=== PATIENT | male | born 1975 | race Caucasian/White ===

== ENCOUNTER 2017-02-15 13:57 | Observation (INO) | payer MEDICAID, SELFPAY ==
[2017-02-15 14:20] VITALS: BP 150/95; PULSE 87; RESP 18; TEMP 36.9; O2SAT 100; BMI 24.3
[2017-02-15 14:26] VITALS: BMI 24.4
[2017-02-15 14:57] VITALS: BP 150/95; PULSE 87; RESP 18; TEMP 36.9
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
[2017-02-15] MEDS: Buprenorphine HCl 2 MG TAB.SUBL SL ×2 (15:11→22:47)
[2017-02-15] MEDS: cloNIDine HCl 0.1 MG Tablet PO ×2 (15:12→22:56)
[2017-02-15] MEDS: Dicyclomine 10 MG Capsule 20 MG PO ×2 (15:12→22:48)
[2017-02-15] MEDS: Methocarbamol 750 MG Tablet PO ×2 (15:13→22:48)
[2017-02-15 15:32] LABS: Absolute Lymphocyte Count 1.33 X10^3/ul (0.83-4.51); Absolute Neutrophil Count 5.2 X10^3/uL (2.0-7.7); Basophil# 0.01 X10^3/uL; Basophil% 0.1 % (0-1); Eosinophil# 0.17 X10^3/uL; Eosinophils% 2.3 % (0-5); Hemoglobin 12.1 g/dl (13.0-16.5); Lymphocyte # 1.33 X10^3/ul (4.0); Lymphocyte % 18.1 % (19-41); Mean Corp Hgb Conc 31.8 g/gl (32-36); Mean Corpuscular Hgb 29.5 pg (27.0-32.0); Mean Corpuscular Volume 92.7 fL (80-94); Mean Platelet Vol. 9.7 fl (6.2-12.0); Monocyte# 0.63 X10^3/uL; Monocyte% 8.6 % (0-10); Neutrophil # 5.21 X10^3/uL (2.7-7.7); Neutrophil % 70.8 % (47-70); Platelet Count 213 K/mm3 (150-450); RBC Distribution Width CV 13.3 % (11.6-14.6); White Blood Count 7.4 K/mm3 (4.4-11.0)
[2017-02-15 15:38] LABS: International Normalized Ratio 1.2; Prothrombin Time (Protime)PT. 14.7 SECONDS (11.7-14.9)
[2017-02-15 15:39] LABS: POSITIVE COUNT NO; POSITIVE DIFFERENTIAL NO; POSITIVE MORPHOLOGY NO
[2017-02-15 15:44] LABS: AST(SGOT) 27 U/L (15-37); Alanine Aminotransfer ALT/SGPT 32 U/L (12-78); Albumin, Serum 3.6 g/dL (3.4-5.0); Alkaline Phosphatase 68 U/L (45-117); Amylase 45 U/L (25-115); Anion Gap 9 (5-15); BUN 14 mg/dL (7-18); BUN/Creat Ratio 10.1 RATIO (10-20); Calcium,Total 8.6 mg/dL (8.5-10.1); Chloride 102 mmol/L (98-107); Creatinine, Serum 1.39 mg/dL (0.70-1.30); EST Glomerular Filtration Rate 60 mL/min (>60); Est Glom Filt Rate - Afr Amer 72 mL/min (>60); Estimated Creatinine Clearance 72.21 ml/min; Globulin 3.7 g/dL (2.2-4.2); Glucose 94 mg/dL (70-110); Lipase 117 U/L (73-393); Potassium 3.9 mmol/L (3.5-5.1); Protein, Total 7.3 g/dL (6.4-8.2); Sodium Level 137 mmol/L (136-145)
[2017-02-15 15:47] LABS: Alcohol, Blood (Medical)-Serum < 3.0 mg/dL
[2017-02-15 18:00] VITALS: BP 145/86; PULSE 80; RESP 20; TEMP 37
[2017-02-15 18:20] VITALS: BP 145/86; PULSE 80; RESP 20; TEMP 37; O2SAT 99
[2017-02-15 22:50] VITALS: BP 147/88; PULSE 83; RESP 18; TEMP 37.6; O2SAT 97
[2017-02-15] MEDS: Acetaminophen 500 MG Tablet PO (22:56)
[2017-02-16] MEDS: Carbidopa/Levodopa 25/100 Tablet PO (02:37)
[2017-02-16 02:38] VITALS: BP 116/63; PULSE 75; RESP 16; TEMP 36.8
[2017-02-16] MEDS: Buprenorphine HCl 2 MG TAB.SUBL SL ×3 (06:36→22:04)
[2017-02-16] MEDS: Methocarbamol 750 MG Tablet PO ×3 (06:36→22:04)
[2017-02-16 06:42] VITALS: BP 126/74; PULSE 74; RESP 18; TEMP 36.9
[2017-02-16] MEDS: cloNIDine HCl 0.1 MG Tablet PO ×2 (09:40→18:17)
[2017-02-16 10:00] VITALS: BP 123/74; PULSE 88; RESP 18; TEMP 37
[2017-02-16 14:00] VITALS: BP 124/64; PULSE 79; RESP 18; TEMP 36.9
--- NOTE | 2017-02-16 14:23 | CHAPLAIN ---
Type of Pastoral Visit _x__ Initial Visit ___ Follow-up Visit ___ On-call Visit ___ General Patient Visit ___ Spiritual Assessment ___ Family Conference ___ Bereavement ___ Rapid Response ___ Code Blue ___ Other (describe below) Pastoral Care Referral From ___ Patient ___ Family ___ Nurse ___ Physician ___ Pot Press Operator ___ Helicopter Dispatcher _x__ Other (describe below) Sacrament/Intervention ___ Active listening ___ Anointing ___ Faith ___ Bereavement ___ Communion ___ Cierra exploration ___ ___ Life review ___ Prayer ___ Reconciliation ___ Sacrament of Sick _x__ Supportive presence ___ Wedding ___ Other (describe below) Pastoral Comments introduction of control board operator and offer for support to patient; pt says that he appreciates the offer but does not need anything at this time
--- NOTE | 2017-02-16 17:52 | PCM.PROGNOTE ---
Patient Problems: Active and Suspected Problems Acute opioid withdrawal (Acute) Subjective: Patient was seen and examined today, he complains of somnolence but otherwise has no complaints today. - Physical Exam General: Alert, Oriented x3, Cooperative HEENT: Atraumatic, PERRLA, EOMI, Normocephalic Oral: Moist Mucosa Neck: Supple, No JVD, Negative Carotid Bruits Lungs: Clear to auscultation, Normal air movement Cardiovascular: Regular rate, No murmurs Abdomen: Bowel Sounds Present, Soft, Non Tender, Non-Distended, No hernias noted Extremities: No edema, Capillary Refill Less than 3 Seconds Skin: No rashes, No breakdown Musculoskeletal: No Tenderness to Palpation of Joints or Extremities Neurological: Cranial nerves II-XII grossly intact, Neuro grossly intact, Sensory exam intact to light touch and pain, Coordination normal Psych/Mental Status: Normal Affect, Appropriate, Alert and oriented to time, place, person, mood and affect Vital Signs Temp Pulse Resp BP Pulse Ox 98.4 F 79 18 124/64 H 97 02/16/17 14:00 02/16/17 14:00 02/16/17 14:00 02/16/17 14:00 02/15/17 22:50 Oxygen Delivery Method Room Air Weight: 77.111 kg Body Mass Index (BMI) 24.3 Intake and Output for Last 24 Hours 02/14/17 02/15/17 02/16/17 23:59 23:59 23:59 Intake Total 400 / 400 1000 / 1000 Balance 400 / 400 1000 / 1000 Assessment/Plan Active and Suspected Problems Acute opioid withdrawal (Acute) #1 acute opioid withdrawal-continue present medications #2 heroin addiction #3 Depression-patient's Wellbutrin was restarted Code Visit Inpatient E&M: [id number] [facility] Hosp L2
[2017-02-16 18:00] VITALS: BP 134/69; PULSE 82; RESP 18; TEMP 37.3
[2017-02-16] MEDS: Acetaminophen 500 MG Tablet PO (18:17)
[2017-02-16 22:00] VITALS: BP 131/69; PULSE 73; RESP 16; TEMP 37
[2017-02-17 06:00] VITALS: BP 147/82; PULSE 82; RESP 16; TEMP 37
[2017-02-17] MEDS: Buprenorphine HCl 2 MG TAB.SUBL SL ×2 (06:22→18:24)
[2017-02-17] MEDS: Acetaminophen 500 MG Tablet PO (06:22)
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
[2017-02-17 10:00] VITALS: BP 120/70; PULSE 81; RESP 18; TEMP 36.9
[2017-02-17] MEDS: Methocarbamol 750 MG Tablet PO ×2 (10:31→22:04)
[2017-02-17] MEDS: Carbidopa/Levodopa 25/100 Tablet PO (10:31)
[2017-02-17] MEDS: BENZOCAINE/MENTHOL 1 LOZENGE MUCOUS MEM (10:31)
[2017-02-17 14:00] VITALS: BP 130/77; PULSE 81; RESP 18; TEMP 36.7
[2017-02-17] MEDS: Loperamide 2 MG Capsule PO (17:27)
[2017-02-17] MEDS: Dicyclomine 10 MG Capsule 20 MG PO (17:27)
[2017-02-17] MEDS: Ondansetron ODT 4 MG Tablet PO (17:28)
[2017-02-17 18:00] VITALS: BP 138/64; PULSE 84; RESP 18; TEMP 37.1
[2017-02-17 22:00] VITALS: BP 136/78; PULSE 87; RESP 18; TEMP 37
[2017-02-18 05:33] VITALS: BP 140/80; PULSE 80; RESP 16; TEMP 37.2
[2017-02-18] MEDS: Buprenorphine HCl 2 MG TAB.SUBL SL (05:34)
--- NOTE | 2017-02-18 05:35 | NURSING ---
Refusing PRNs at this time. C/o of abd discomfort, muscle aches and withdrawal score of 1.
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
[2017-02-18 09:19] VITALS: BP 133/98; PULSE 85; RESP 18; TEMP 37.1
[2017-02-18] MEDS: Ondansetron ODT 4 MG Tablet PO (09:32)
== END 2017-02-18 13:16 | disposition home or self-care (01) | DRG 435 ==
PROVIDERS: Admitting Provider Hospitalist; Visit Provider Internal Medicine
DX: F11.23 Opioid dependence with withdrawal (principal); F32.9 Major depressive disorder, single episode, unspecified; Z87.19 Personal history of other diseases of the digestive system
CPT/HCPCS: 80053; 80320; 82150; 83690; 85025; 85610; 99218; G0378; G0480

== ENCOUNTER 2017-05-23 11:38 | Inpatient (IN) | payer MEDICAID, SELFPAY ==
[2017-05-23 11:40] VITALS: BP 202/136; PULSE 87; RESP 20; TEMP 36.6; O2SAT 100; BMI 23.7
[2017-05-23 12:29] LABS: Absolute Lymphocyte Count 1.72 X10^3/ul (0.83-4.51); Absolute Neutrophil Count 6.4 X10^3/uL (2.0-7.7); Basophil# 0.01 X10^3/uL; Basophil% 0.1 % (0-1); Eosinophil# 0.07 X10^3/uL; Eosinophils% 0.8 % (0-5); Hematocrit 37.7 % (40-54); Hemoglobin 12.1 g/dl (13.0-16.5); Lymphocyte # 1.72 X10^3/ul (4.0); Lymphocyte % 19.8 % (19-41); Mean Corp Hgb Conc 32.1 g/gl (32-36); Mean Corpuscular Hgb 29.5 pg (27.0-32.0); Mean Platelet Vol. 9.6 fl (6.2-12.0); Monocyte# 0.48 X10^3/uL; Monocyte% 5.5 % (0-10); Neutrophil # 6.37 X10^3/uL (2.7-7.7); Neutrophil % 73.6 % (47-70); Platelet Count 345 K/mm3 (150-450); RBC Distribution Width CV 14.9 % (11.6-14.6); RBC Distribution Width SD 48.9 fl (35.1-43.9); White Blood Count 8.7 K/mm3 (4.4-11.0)
[2017-05-23 12:31] LABS: POSITIVE COUNT NO; POSITIVE DIFFERENTIAL NO; POSITIVE MORPHOLOGY NO
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
[2017-05-23 12:37] LABS: Anion Gap 4 (5-15); BUN 15 mg/dL (7-18); BUN/Creat Ratio 12.6 RATIO (10-20); Calcium,Total 8.3 mg/dL (8.5-10.1); Chloride 105 mmol/L (98-107); Creatinine, Serum 1.19 mg/dL (0.70-1.30); EST Glomerular Filtration Rate 72 mL/min (>60); Est Glom Filt Rate - Afr Amer 87 mL/min (>60); Estimated Creatinine Clearance 87.01 ml/min; Glucose 73 mg/dL (74-106); Potassium 4.7 mmol/L (3.5-5.1); Sodium Level 137 mmol/L (136-145)
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
[2017-05-23] MEDS: 0.9% Normal Saline 1,000 ML 150 ML IV ×2 (13:32→23:39)
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
[2017-05-23] MEDS: Ondansetron 4 MG/2 ML Vial IV (13:41)
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
[2017-05-23 13:44] VITALS: BP 167/111; PULSE 80; RESP 16; O2SAT 98
--- NOTE | 2017-05-23 13:44 | NURSING ---
216 CELLULITIS LUE, OPIATE ABUSE, IVDA WHITE
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
[2017-05-23 14:58] VITALS: BP 161/100; PULSE 81; RESP 18; TEMP 36.3; O2SAT 96
[2017-05-23 15:07] VITALS: BMI 22.5
[2017-05-23 15:08] VITALS: BMI 22.5
[2017-05-23 15:43] VITALS: O2SAT 99
[2017-05-23] MEDS: Ketorolac 30 MG/ML Syringe IV ×2 (15:43→21:46)
[2017-05-23 15:58] LABS: Magnesium 2.2 mg/dL (1.6-2.6); Phosphorus 3.2 mg/dL (2.5-4.9)
[2017-05-23] MEDS: Piperacil/Tazobactam 3.375 GM/50 ML ML IV ×2 (17:12→21:46)
[2017-05-23] MEDS: Gabapentin 100 MG Capsule 200 MG PO (17:26)
[2017-05-23 20:58] VITALS: BP 162/100; PULSE 77; RESP 18; TEMP 36.6; O2SAT 98
[2017-05-23] MEDS: Famotidine 20 MG Tablet PO (21:46)
[2017-05-23] MEDS: cloNIDine HCl 0.1 MG Tablet PO (21:46)
[2017-05-23] MEDS: Dicyclomine 10 MG Capsule 20 MG PO (21:46)
[2017-05-23] MEDS: buPROPion (XL) 150 MG TABLET.XL PO (21:54)
[2017-05-23] MEDS: tiZANidine HCl 2 MG Tablet 4 MG PO (21:54)
--- NOTE | 2017-05-23 23:40 | NURSING ---
This RN walked into pt's room and one of pt's IV pumps was beeping. After fixing that pump, this RN realized the Zosyn bag had fallen because the hole on the bag to hang the bag had broken again after already being well reinforced. The majority of the flush bag had gone into the Zosyn bag. Pharmacy was called and after seeing what time the bag was hung and checking the pt's kidney function, it was decided to just hang an entire new bag. New bag hung by air sampling and monitoring and currently infusing. Per pharmacy-do not scan a new bag, OK to just put a note in.
[2017-05-24 02:58] VITALS: BP 151/91; PULSE 59; RESP 18; TEMP 36.5; O2SAT 98
[2017-05-24] MEDS: cloNIDine HCl 0.1 MG Tablet PO ×4 (03:43→20:56)
[2017-05-24] MEDS: Dicyclomine 10 MG Capsule 20 MG PO ×3 (03:43→20:55)
[2017-05-24] MEDS: Ketorolac 30 MG/ML Syringe IV ×3 (05:35→20:54)
[2017-05-24] MEDS: tiZANidine HCl 2 MG Tablet 4 MG PO ×3 (05:35→20:55)
[2017-05-24] MEDS: 0.9% Normal Saline 1,000 ML 150 ML IV ×3 (05:35→19:15)
[2017-05-24] MEDS: 0.9% NaCl IVPB Med Flush (250 mL) 15 ML IV (05:37)
[2017-05-24 06:42] LABS: Absolute Lymphocyte Count 1.86 X10^3/ul (0.83-4.51); Absolute Neutrophil Count 3.6 X10^3/uL (2.0-7.7); Basophil# 0.02 X10^3/uL; Basophil% 0.3 % (0-1); Eosinophils% 3.3 % (0-5); Hematocrit 37.3 % (40-54); Hemoglobin 11.5 g/dl (13.0-16.5); Lymphocyte # 1.86 X10^3/ul (4.0); Lymphocyte % 30.8 % (19-41); Mean Corp Hgb Conc 30.8 g/gl (32-36); Monocyte# 0.37 X10^3/uL; Monocyte% 6.1 % (0-10); Neutrophil # 3.59 X10^3/uL (2.7-7.7); Neutrophil % 59.5 % (47-70); POSITIVE COUNT NO; POSITIVE DIFFERENTIAL NO; POSITIVE MORPHOLOGY NO; Platelet Count 265 K/mm3 (150-450); RBC Distribution Width CV 14.9 % (11.6-14.6); RBC Distribution Width SD 51.4 fl (35.1-43.9); Red Blood Count 3.97 M/mm3 (4.6-6.2)
[2017-05-24 07:42] VITALS: O2SAT 98
[2017-05-24] MEDS: Piperacil/Tazobactam 3.375 GM/50 ML ML IV ×3 (07:52→20:55)
[2017-05-24] MEDS: Gabapentin 100 MG Capsule 200 MG PO ×3 (07:58→17:34)
[2017-05-24] MEDS: buPROPion (XL) 150 MG TABLET.XL PO ×2 (07:59→20:55)
[2017-05-24] MEDS: Docusate Sodium 100 MG Capsule PO (07:59)
[2017-05-24] MEDS: Famotidine 20 MG Tablet PO ×2 (07:59→20:53)
[2017-05-24 08:06] VITALS: PULSE 55
[2017-05-24 08:58] VITALS: BP 137/74; PULSE 55; RESP 16; TEMP 36.7; O2SAT 99
--- NOTE | 2017-05-24 10:26 | PCM.RX.CS ---
Consult Pharmacy has been consulted to manage selected antiobiotic: Vancomycin Type of Consult: New start Suspected Infection: Skin/Soft tissue Prior Doses of Antibiotics Received/Current Regimen: Medications Discontinued Medications Vancomycin HCl 1,250 mg/ (Sodium Chloride) 275 mls @ 183.333 mls/hr IV X1 ONE Stop: 05/23/17 13:44 Last Admin: 05/23/17 15:32 Dose: 183.333 mls/hr Labs: Sodium 137 mmol/L (136-145) 05/23/17 12:10 Potassium 4.7 mmol/L (3.5-5.1) 05/23/17 12:10 Chloride 105 mmol/L (98-107) 05/23/17 12:10 Carbon Dioxide 28.0 mmol/L (21.0-32.0) 05/23/17 12:10 Anion Gap 4 (5-15) L 05/23/17 12:10 BUN 15 mg/dL (7-18) 05/23/17 12:10 Creatinine 1.19 mg/dL (0.70-1.30) 05/23/17 12:10 Est GFR (MDRD) Af Amer 87 mL/min (>60) 05/23/17 12:10 Est GFR (MDRD) Non-Af 72 mL/min (>60) 05/23/17 12:10 BUN/Creatinine Ratio 12.6 RATIO (10-20) 05/23/17 12:10 Glucose 73 mg/dL (74-106) L 05/23/17 12:10 Weight used for dosin kg Estimated Creatinine Clearance: 87 mL/min Goal Trough: 10-15 mcg/mL Pharmacy Plan for Drug Dosing: Recommend vancomycin 1000mg IV q12h. Check trough prior to 4th dose. Pharmacy Service will continue to monitor and adjust dosing as required. Follow-Up Labs: Trough Vancomycin - 05/25 @ 1700
--- NOTE | 2017-05-24 11:48 | CASEMGMT ---
Social Work Note Call from Nancy with [facility] stating that the pt is not admitted under [facility], but she is assisting him with aftercare at [facility] who will be in to evaluate him this afternoon at 1500. Requests that SW obtain a Release of Information from pt. Educate pt to release of information and purpose and pt expresses understanding. Faxed completed Release of Information to Nancy with [facility] at [phone]. Kaila Sarkar, ROOF DESIGNER, [employer]
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
[2017-05-24 14:58] VITALS: BP 155/70; PULSE 69; RESP 16; TEMP 37; O2SAT 99
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
--- NOTE | 2017-05-24 15:34 | CHAPLAIN ---
Type of Pastoral Visit _x__ Initial Visit ___ Follow-up Visit ___ On-call Visit ___ General Patient Visit ___ Spiritual Assessment ___ Family Conference ___ Bereavement ___ Rapid Response ___ Code Blue ___ Other (describe below) Pastoral Care Referral From _x__ Patient ___ Family ___ Nurse ___ Physician ___ Nutrition Worker ___ Oil Well Fishing Tool Operator ___ Other (describe below) Sacrament/Intervention _x__ Active listening ___ Anointing ___ Taoism ___ Bereavement ___ Communion ___ Cierra exploration ___ _x__ Life review _x__ Prayer ___ Reconciliation ___ Sacrament of Sick _x__ Supportive presence ___ Wedding ___ Other (describe below) Pastoral Comments
[2017-05-24] MEDS: oxyCODONE 5 MG Tablet 10 MG PO (15:47)
[2017-05-24 20:32] VITALS: BP 164/103; PULSE 69; RESP 18; TEMP 36.8; O2SAT 98
[2017-05-24] MEDS: Ondansetron 4 MG/2 ML Vial IV (20:56)
[2017-05-24] MEDS: 0.9% NaCl Peripheral Flush Adult/Peds IV (22:45)
[2017-05-24] MEDS: proMETHazine 25 MG/ML Syringe 12.5 MG IV (22:46)
[2017-05-25] VITALS (13 sets, daily range): BP systolic 131–169; BP diastolic 60–102; PULSE 62–92; RESP 14–20; TEMP 36.3–37.2; O2SAT 96–100; BMI 23.8
--- NOTE | 2017-05-25 | DEB_PTH ---
PATIENT: ANAHY KOEHLER LOC: MS2 U#:[id number] AGE/SX: 42/M ROOM: [facility] [place] RE05/23/[address]: Dr. Thi Forde MD : [id number] BED: 1 DIS: 05/29/2017 SPEC #: [id number] RECD: 05/25/17 13:59 STATUS: XIMENA REQ #: [id number] KADY: 05/25/17 00:[address]: Floyd Hayes DEPT: SURGICAL PATHOLOGY RECD BY: Mookie Neil ENTERED: 05/25/17 13:59 SP TYPE: CAITLIN OCAMPO DR: MD Priscila Polanco MD No Primary Care Phys Tissues: Soft tissues, NOS Procedures: Surgery Specimen Level III Comments: @ Ordering doctor for SUIII edited from to @ by RGOOD at 05/25/17 1449 @ Submitting doctor edited from to @ by RGOOD at 05/25/17 1449 HEADER OPERATION: Incision and drainage, abscess left hand, I & D foreign body dorsum hand PRE-OP DIAGNOSIS: Cellulitis of left upper arm TISSUE SUBMITTED: Debrided tissue, left dorsum of hand MICROSCOPIC DIAGNOSIS Debrided tissue, left dorsum of hand: A piece of skin with underlying tissue with acute and chronic inflammation and abscess formation. Special stains for acid fast bacilli and fungi are negative for organisms; matched controls are appropriate. REYNA:hilton 05/26/17 MICROSCOPIC DESCRIPTION Slides are reviewed. GROSS DESCRIPTION Received in fixative is one container labeled with the patient's name and designated left dorsum of hand. The specimen consists of an irregular fragment of pink-joshi excised skin with attached yellow fatty tissue. The specimen measures 2.5 x 2.5 and a depth of fixation measuring 0.8 cm. No mass lesions are seen. Hooking Machine Operator sections are submitted in one cassette. HAO/hilton 05/25/17 TC: 2 CPT: 73002, 48412 x2
--- NOTE | 2017-05-25 00:13 | NURSING ---
Pt restless and not feeling well from withdraw symptoms. Pt was in bathroom and this RN assisted him back to bed and fixed blankets on bed. This RN found pill in bed and pt states it was a Wellbutrin. Compared pill to Wellbutrin pills in med stereo equipment installer room and did appear to be Wellbutrin. Pt states he took his dose from [facility] but he believes it may have been this morning's dose because he did not remember taking it this morning and had even asked earlier in [facility]'s shift if he had even received it this morning. Pt requested pill to be disposed of. This RN disposed of pill in sharps container.
[2017-05-25] MEDS: 0.9% Normal Saline 1,000 ML 150 ML IV ×3 (01:36→20:39)
[2017-05-25] MEDS: cloNIDine HCl 0.1 MG Tablet PO ×2 (01:50→22:08)
--- NOTE | 2017-05-25 04:58 | EKG12_ITS ---
Test Reason : PRE OP Blood Pressure : / mmHG Vent. Rate : 062 BPM Atrial Rate : 062 BPM P-R Int : 176 ms QRS Dur : 094 ms QT Int : 426 ms P-R-T Axes : 060 029 046 degrees QTc Int : 432 ms Normal sinus rhythm Normal ECG No previous ECGs available Confirmed by EDY TOBIN, ANGEL ([id number]), editor index ELSIE TYLER ([id number]) on 06/06/2017 9:31:43 AM Referred By: KAYLEE Confirmed By:ANGEL SNOW MD
[2017-05-25] MEDS: Ketorolac 30 MG/ML Syringe IV ×3 (05:23→21:08)
[2017-05-25] MEDS: tiZANidine HCl 2 MG Tablet 4 MG PO ×3 (05:24→21:08)
[2017-05-25 05:45] LABS: Bacteria 0 SEEN /hpf (None Seen); Mucous, Urine 0 SEEN /hpf (<or=2+); Red Blood Cells-Urine 0 SEEN /hpf (0-5); Squamous Epithelial Cells - UA 0 SEEN /hpf (0-5); White Blood Cells 0 SEEN /hpf (0-5)
[2017-05-25 05:47] LABS: Color, Urine Yellow (Yellow); Glucose, Dipstick Normal (Normal); Ketone-Dipstick Negative (Negative); Leukocyte Esterase-Dipstick Negative /ul (Negative); Nitrite-Dipstick Negative (Negative); Occult Blood-Urine Negative /ul (Negative); Protein-Dipstick Negative (Negative); Specific Gravity, Urine 1.015 (1.002-1.030); Urine Bilirubin Dipstick Negative (Negative); Urine Clarity Clear (Clear); Urine Urobilinogen Normal (Normal)
[2017-05-25 06:08] LABS: HEPATITIS B SURFACE AG Negative (Negative); Hepatitis A AB, Total Positive (Negative); Hepatitis A IgM Antibody Negative (Negative); Hepatitis B Core AB IgM Negative (Negative); Hepatitis B Core Ab Total Negative (Negative)
[2017-05-25 06:14] LABS: Hematocrit 34.3 % (40-54); Mean Corp Hgb Conc 32.1 g/gl (32-36); Mean Corpuscular Hgb 29.6 pg (27.0-32.0); Mean Corpuscular Volume 92.5 fL (80-94); Mean Platelet Vol. 9.5 fl (6.2-12.0); Platelet Count 302 K/mm3 (150-450); RBC Distribution Width CV 14.7 % (11.6-14.6); RBC Distribution Width SD 48.2 fl (35.1-43.9); Red Blood Count 3.71 M/mm3 (4.6-6.2); White Blood Count 8.4 K/mm3 (4.4-11.0)
[2017-05-25 06:15] LABS: Scan Indicated on CBC? Y/N NO
[2017-05-25 06:38] LABS: Anion Gap 7 (5-15); BUN 11 mg/dL (7-18); BUN/Creat Ratio 11.1 RATIO (10-20); Calcium,Total 7.7 mg/dL (8.5-10.1); Chloride 109 mmol/L (98-107); Creatinine, Serum 0.99 mg/dL (0.70-1.30); EST Glomerular Filtration Rate 88 mL/min (>60); Est Glom Filt Rate - Afr Amer 107 mL/min (>60); Estimated Creatinine Clearance 104.58 ml/min; Glucose 101 mg/dL (74-106); Potassium 3.7 mmol/L (3.5-5.1); Prealbumin 22.5 mg/dL (20.0-40.0); Sodium Level 141 mmol/L (136-145)
[2017-05-25] MEDS: Piperacil/Tazobactam 3.375 GM/50 ML ML IV ×3 (06:45→18:25)
--- NOTE | 2017-05-25 10:24 | NURSING ---
Call placed to [facility], report given to [place]
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
[2017-05-25 13:50] LABS: Hep B Surface Antibodies Reactive (.)
[2017-05-25 13:54] LABS: Hepatitis C Ab >11.0 s/co ratio (0.0-0.9)
[2017-05-25] MEDS: oxyCODONE 5 MG Tablet 10 MG PO ×4 (14:22→22:36)
[2017-05-25] MEDS: Docusate Sodium 100 MG Capsule PO (14:24)
[2017-05-25] MEDS: Famotidine 20 MG Tablet PO ×2 (14:24→21:08)
[2017-05-25] MEDS: buPROPion (XL) 150 MG TABLET.XL PO ×2 (14:25→21:08)
[2017-05-25] MEDS: Gabapentin 100 MG Capsule 200 MG PO ×2 (14:26→16:55)
--- NOTE | 2017-05-25 15:47 | CHAPLAIN ---
Type of Pastoral Visit ___ Initial Visit _x__ Follow-up Visit ___ On-call Visit ___ General Patient Visit ___ Spiritual Assessment ___ Family Conference ___ Bereavement ___ Rapid Response ___ Code Blue ___ Other (describe below) Pastoral Care Referral From _x__ Patient ___ Family ___ Nurse ___ Physician ___ Injection Maintenance Technician ___ Water Engineer ___ Other (describe below) Sacrament/Intervention _x__ Active listening ___ Anointing ___ Presybeterian ___ Bereavement ___ Communion _x__ Cierra exploration ___ _x__ Life review _x__ Prayer ___ Reconciliation ___ Sacrament of Sick _x__ Supportive presence ___ Wedding ___ Other (describe below) Pastoral Comments post surgery; pt is rapidly eating saying I'm so hungry; pt is actively talking about life and many matters; pt calls himself the black sheep of the family; we talk about his importance and value
[2017-05-25 18:19] LABS: Vancomycin, Trough Level 7.9 ug/mL (5.0-15.0)
[2017-05-25] MEDS: Dicyclomine 10 MG Capsule 20 MG PO (18:28)
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
--- NOTE | 2017-05-25 18:49 | PCM.RX.CS ---
Consult Type of Consult: Follow-up Suspected Infection: Skin/Soft tissue Prior Doses of Antibiotics Received/Current Regimen: Medications Discontinued Medications Vancomycin HCl (Vancomycin) 1,000 mg in 200 mls @ 200 mls/hr IV Q12H NENO Last Admin: 05/25/17 17:00 Dose: 200 mls/hr Labs: Sodium 141 mmol/L (136-145) 05/25/17 05:50 Potassium 3.7 mmol/L (3.5-5.1) 05/25/17 05:50 Chloride 109 mmol/L (98-107) H 05/25/17 05:50 Carbon Dioxide 25.0 mmol/L (21.0-32.0) 05/25/17 05:50 Anion Gap 7 (5-15) 05/25/17 05:50 BUN 11 mg/dL (7-18) 05/25/17 05:50 Creatinine 0.99 mg/dL (0.70-1.30) 05/25/17 05:50 Est GFR (MDRD) Af Amer 107 mL/min (>60) 05/25/17 05:50 Est GFR (MDRD) Non-Af 88 mL/min (>60) 05/25/17 05:50 BUN/Creatinine Ratio 11.1 RATIO (10-20) 05/25/17 05:50 Glucose 101 mg/dL (74-106) 05/25/17 05:50 Vancomycin Trough 7.9 ug/mL (5.0-15.0) 05/25/17 16:47 Microbiology: Microbiology 05/25/17 12:54 Tissue - Arm Left Gram Stain - Final Weight used for dosin.5 kg Estimated Creatinine Clearance: 104 ML/MIN Goal Trough: 10-15 mcg/mL Pharmacy Plan for Drug Dosing: Trough of 05.25.17 7.9. Cr 0.99. Will increase dose of vancomycin to 1250mg IV Q12H with next estimated trough to be ~12. Pharmacy Service will continue to monitor and adjust dosing as required. Follow-Up Labs: Trough Vancomycin Labs to be done on [date and time ordered]: 05.27.17 @0557
[2017-05-25] MEDS: 0.9% NaCl IVPB Med Flush (250 mL) 15 ML IV (20:39)
[2017-05-25] MEDS: Acetaminophen 325 MG Tablet 650 MG PO (22:08)
[2017-05-26] MEDS: oxyCODONE 5 MG Tablet 10 MG PO ×2 (02:32→07:48)
[2017-05-26] MEDS: Piperacil/Tazobactam 3.375 GM/50 ML ML IV ×3 (02:32→19:25)
[2017-05-26] MEDS: Dicyclomine 10 MG Capsule 20 MG PO (02:35)
[2017-05-26] MEDS: cloNIDine HCl 0.1 MG Tablet PO ×2 (02:35→22:15)
[2017-05-26 02:37] VITALS: BP 157/82; PULSE 73; RESP 16; TEMP 36.7; O2SAT 99
[2017-05-26 02:40] VITALS: PULSE 73; RESP 16; O2SAT 99
[2017-05-26] MEDS: 0.9% Normal Saline 1,000 ML 150 ML IV ×2 (04:23→17:19)
[2017-05-26] MEDS: Acetaminophen 325 MG Tablet 650 MG PO ×2 (04:28→15:55)
[2017-05-26] MEDS: 0.9% NaCl Peripheral Flush Adult/Peds IV ×2 (05:10→22:01)
[2017-05-26] MEDS: Ketorolac 30 MG/ML Syringe IV ×3 (05:12→21:06)
[2017-05-26] MEDS: tiZANidine HCl 2 MG Tablet 4 MG PO ×3 (05:12→21:05)
[2017-05-26 07:42] VITALS: BP 156/95; PULSE 63; RESP 16; TEMP 36.1; O2SAT 100
[2017-05-26] MEDS: Gabapentin 100 MG Capsule 200 MG PO ×3 (07:48→16:00)
[2017-05-26 07:54] LABS: Hematocrit 37.9 % (40-54); Mean Corp Hgb Conc 31.7 g/gl (32-36); Mean Corpuscular Hgb 29.4 pg (27.0-32.0); Mean Corpuscular Volume 92.9 fL (80-94); Mean Platelet Vol. 9.2 fl (6.2-12.0); Platelet Count 254 K/mm3 (150-450); RBC Distribution Width CV 14.8 % (11.6-14.6); RBC Distribution Width SD 50.2 fl (35.1-43.9); Red Blood Count 4.08 M/mm3 (4.6-6.2); Scan Indicated on CBC? Y/N NO; White Blood Count 6.7 K/mm3 (4.4-11.0)
[2017-05-26 08:14] LABS: Anion Gap 7 (5-15); BUN 9 mg/dL (7-18); BUN/Creat Ratio 9.3 RATIO (10-20); Calcium,Total 7.7 mg/dL (8.5-10.1); Chloride 109 mmol/L (98-107); Creatinine, Serum 0.97 mg/dL (0.70-1.30); EST Glomerular Filtration Rate 91 mL/min (>60); Est Glom Filt Rate - Afr Amer 110 mL/min (>60); Estimated Creatinine Clearance 106.74 ml/min; Glucose 82 mg/dL (74-106); Potassium 3.6 mmol/L (3.5-5.1); Sodium Level 138 mmol/L (136-145)
[2017-05-26] MEDS: Famotidine 20 MG Tablet PO (09:07)
[2017-05-26] MEDS: buPROPion (XL) 150 MG TABLET.XL PO ×2 (09:07→21:05)
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
[2017-05-26] MEDS: Buprenorphine HCl 2 MG TAB.SUBL SL ×2 (10:39→17:19)
[2017-05-26] MEDS: QUEtiapine 25 MG Tablet PO ×2 (10:39→22:15)
--- NOTE | 2017-05-26 10:42 | NURSING ---
This nurse is aware that Dr. Moses has ordered a midline to be inserted into pt. IVT is not here and discussed with Ruddy Clark [employer] Assistant. Okay to call [facility], outside agency. This nurse called [facility] and informed them of the need/order for a midline in MR. Guerrero. They will call back with a time that they can access the pt.
--- NOTE | 2017-05-26 10:43 | NURSING ---
wound photo: left hand
--- NOTE | 2017-05-26 10:46 | CASEMGMT ---
Social Work Spoke with Nancy in [facility]. Pt has been denied post accute placement at [facility]. Pt is agreeable to placement at [facility]. Met with pt in room and discussed post accute placement and pt has spoken with Nancy and is agreeable to [facility]. Release form signed and clinical information faxed to EFREM Davis at [facility]. MATTHEW Ortiz
--- NOTE | 2017-05-26 11:02 | NURSING ---
pt lost IV access this am. Dr Yost aware. awaiting agency IVT to place midline if possible in pt
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
[2017-05-26 14:00] VITALS: BP 152/78; PULSE 77; RESP 18; TEMP 36.2; O2SAT 98
[2017-05-26 19:50] VITALS: PULSE 91; RESP 18; TEMP 36.4; O2SAT 100
--- NOTE | 2017-05-26 20:12 | PCM.PN.SRG ---
Patient Problems: Active and Suspected Problems Cellulitis of left upper arm (Acute) Subjective: Postop #1 Patient has wound pain. VAC applied. - Physical Exam General: Alert, Oriented x3 HEENT: PERRLA, EOMI Neck: Supple Lungs: Clear to auscultation Cardiovascular: Regular rate, Regular Rhythm Abdomen: Soft, Non-Distended Skin: Ulcer/ Wound - dorsum left hand and wrist wound is stable. No bleeding noted. VAC applied today. Lymphatic: - - no axillary adenopathy. Neurological: Cranial nerves II-XII grossly intact Psych/Mental Status: Normal Affect, Appropriate Vital Signs Temp Pulse Resp BP Pulse Ox 97.5 F L 91 18 152/78 H 100 05/26/17 19:50 05/26/17 19:50 05/26/17 19:50 05/26/17 14:00 05/26/17 19:50 Oxygen Delivery Method Room Air Weight: 170 lb 12.8 oz Body Mass Index (BMI) 23.8 Intake and Output for Last 24 Hours 05/24/17 05/25/17 05/26/17 23:59 23:59 23:59 Intake Total 2954.0 / 2954.0 6280 / 6280 5786 / 5786 Balance 2954.0 / 2954.0 6280 / 6280 5786 / 5786 Microbiology Past 72 Hours 05/25/17 12:54 Gram Stain - Final Tissue - Arm Left Wound Culture - Preliminary Staphylococcus aureus Laboratory Tests Past 24 Hrs 05/23/17 05/26/17 05/26/17 15:03 07:44 07:44 WBC 6.7 RBC 4.08 L Hgb 12.0 L Hct 37.9 L MCV 92.9 MCH 29.4 MCHC 31.7 L RDW 14.8 H RDW Differential 50.2 H Plt Count 254 MPV 9.2 Sodium 138 Potassium 3.6 Chloride 109 H Carbon Dioxide 22.0 Anion Gap 7 BUN 9 Creatinine 0.97 Estim Creat Clear Calc 106.74 Est GFR (MDRD) Af Amer 110 Est GFR (MDRD) Non-Af 91 BUN/Creatinine Ratio 9.3 L Glucose 82 Calcium 7.7 L Hepatitis C Comment Not Reportable Medical Necessity - Tobacco Use Smoking Status: Never smoker Tobacco Use: Non-smoker Assessment/Plan Active and Suspected Problems Cellulitis of left upper arm (Acute) 1. Abscess dorsum left hand and wrist area on ulnar aspect. 2. Retained foreign bodies granuloma left wrist distal forearm, stable. 3. Cocaine abuse. 4. Heroin abuse. 5. s/p I&D. Continue IV antibiotics with Zosyn and Vancomycin. Operative culture shows Staphylococcus aureus. Awaiting sensitivity. Wound is stable with no bleeding. VAC applied today. To be changed three times per week at 150 mmHg continuous suction. No foreign bodies seen in the area of the abscess. They appear to be more proximal and are asymptomatic at this time. Will re-evaluate in the future if the areas involved on the distal forearm become symptomatic. Anticipate increased metabolic demands from the infection and from the upcoming surgery. Prealbumin was 22.5. Encourage nutritional supplementation with protein to help the healing process. After discharge, will followup at the Wound Center. If there is a plateau in the healing process, can proceed with delayed closure with skin grafting. Encourage range of motion exercises to minimize stiffness.
[2017-05-26 22:07] VITALS: BP 154/102; PULSE 80; RESP 16; TEMP 36.6
[2017-05-27] MEDS: Piperacil/Tazobactam 3.375 GM/50 ML ML IV ×2 (01:07→09:35)
[2017-05-27] MEDS: Buprenorphine HCl 2 MG TAB.SUBL SL ×3 (01:07→17:07)
[2017-05-27 01:09] VITALS: BP 158/104; PULSE 79; RESP 16; TEMP 36.6; O2SAT 100
[2017-05-27] MEDS: tiZANidine HCl 2 MG Tablet 4 MG PO ×3 (05:51→22:41)
[2017-05-27] MEDS: Ketorolac 30 MG/ML Syringe IV ×3 (05:51→22:42)
--- NOTE | 2017-05-27 08:42 | PN_ITS ---
Patient Problems: Active and Suspected Problems Cellulitis of left upper arm (Acute) Subjective: Chief complaint: Follow-up after admission for left upper extremity/hand cellulitis and acute opioid withdrawal for medical stabilization. Patient seen and examined. No acute events overnight. He denies any left hand or arm pain. Denies fever chills. He complains of chronic abdominal pain secondary to IBS and chronic pancreatitis. His blood pressure slightly elevated , other vital signs are stable. - Physical Exam General: Alert, Oriented x3, Cooperative, No apparent distress HEENT: Atraumatic, PERRLA, EOMI Oral: Moist Mucosa, No Gingival or Mucosal Lesions/ Ulcerations Neck: Supple, No JVD, Negative Carotid Bruits, Trachea Midline, Thyroid Normal Size and Texture Lungs: Clear to auscultation, No rhonchi, No wheeze, No rales, Diminished Cardiovascular: Regular rate, Regular Rhythm, Normal S1, Normal S2, No murmurs, PMI Normal Abdomen: Bowel Sounds Present, Soft, Non Tender, Non-Distended, No Hepato- splenomegaly, - - Voluntary guarding. Extremities: No clubbing, No cyanosis, No edema Skin: No rashes, Ulcer/ Wound Lymphatic: No Cervical, Supraclavicular, or Inguinal Adenopathy Neurological: Cranial nerves II-XII grossly intact, Motor Exam 5/5 strength throughout Psych/Mental Status: Normal Affect, Appropriate, Alert and oriented to time, place, person, mood and affect Vital Signs Temp Pulse Resp BP Pulse Ox 97.8 F 79 16 158/104 H 100 05/27/17 01:09 05/27/17 01:09 05/27/17 01:09 05/27/17 01:09 05/27/17 01:09 Oxygen Delivery Method Room Air Weight: 170 lb 12.8 oz Body Mass Index (BMI) 23.8 Intake and Output for Last 24 Hours 05/25/17 05/26/17 05/27/17 23:59 23:59 23:59 Intake Total 6280 / 6280 5786 / 5786 1268 / 1268 Balance 6280 / 6280 5786 / 5786 1268 / 1268 Microbiology Past 72 Hours 05/25/17 12:54 Gram Stain - Final Tissue - Arm Left Wound Culture - Final Staphylococcus aureus Laboratory Tests Past 24 Hrs 05/23/17 15:03 Hepatitis C Comment Not Reportable Medical Necessity - Tobacco Use Smoking Status: Never smoker Tobacco Use: Non-smoker Assessment/Plan Active and Suspected Problems Cellulitis of left upper arm (Acute) This is a 42 years old male patient admitted because of left upper extremity/ hand redness, pain and edema in context of history of IV drug abuse, found to have acute left upper extremity cellulitis with questionable foreign body and was started on [facility] protocol for medical stabilization for opioid withdrawal yesterday. #1 acute left upper extremity/hand cellulitis/abscess of the dorsum of the left hand and wrist area with retained foreign bodies granuloma: Status post incision , drainage and excisional debridement of the abscess, status post wound VAC insertion. Postoperative day 2. He is on IV vancomycin and Zosyn. Vital signs are stable, afebrile. Wound culture revealed MSSA. Blood cultures with no growth in 48 hours. Plastic surgery of the case, Dr. Hayes is following. Plan to DC IV Zosyn, continue IV vancomycin. #2 acute opioid withdrawal: He is on [facility] protocol with tapering course of Subutex, as needed Catapres, Bentyl, Zofran, Seroquel and Zanaflex. Patient reported some improvement of his symptoms. Vital signs are stable, blood pressure slightly elevated. #3 polysubstance abuse: Hepatitis C antibodies were elevated, positive for hepatitis C. Hepatitis a antibody is also positive. At this time, he is not a candidate for treatment for hepatitis C. Recommend follow-up with PCP and referral to infectious disease as outpatient. #4 anxiety/depression: Continue Wellbutrin and atomoxetine. #5 chronic abdominal pain/chronic pancreatitis: This is chronic likely secondary to chronic pancreatitis. He is on PPI and pancrelipase. #6 DVT prophylaxis: Low risk patient, no prophylaxis indicated. This note was generated with [employer] software. It may contain incorrect words, spelling, and punctuation that were not noted in checking the note before signing. Code Visit Inpatient E&M: 11174 Subs Hosp L2
[2017-05-27 09:17] VITALS: BP 151/79; PULSE 75; RESP 16; TEMP 36.7; O2SAT 99
[2017-05-27] MEDS: Gabapentin 100 MG Capsule 200 MG PO ×3 (09:35→17:07)
[2017-05-27] MEDS: Pantoprazole Sodium 40 MG Tablet PO (09:35)
[2017-05-27] MEDS: buPROPion (XL) 150 MG TABLET.XL PO ×2 (09:36→17:08)
[2017-05-27 09:40] VITALS: BP 151/79; PULSE 75; RESP 16; TEMP 36.7
[2017-05-27] MEDS: Acetaminophen 325 MG Tablet 650 MG PO ×2 (12:14→19:50)
[2017-05-27 14:00] VITALS: BP 165/93; PULSE 79; RESP 16; TEMP 36.8
[2017-05-27 14:23] VITALS: BP 165/93; PULSE 79; RESP 16; TEMP 36.8; O2SAT 99
[2017-05-27] MEDS: 0.9% NaCl Peripheral Flush Adult/Peds IV ×2 (14:27→22:42)
--- NOTE | 2017-05-27 15:32 | PCM.PN.SRG ---
Patient Problems: Active and Suspected Problems Cellulitis of left upper arm (Acute) Subjective: Postop #2 Patient is resting comfortably. - Physical Exam General: Alert, Oriented x3 HEENT: PERRLA, EOMI Neck: Supple Lungs: Clear to auscultation Cardiovascular: Regular rate, Regular Rhythm Abdomen: Soft, Non-Distended Extremities: Edema - mild edema in left upper extremity, resolving., Peripheral Pulses Normal, - - good range of motion of his fingers and his wrist. Skin: Ulcer/ Wound - dorsum left hand and wrist wound is stable. Lymphatic: - - no axillary adenopathy. Neurological: Cranial nerves II-XII grossly intact Psych/Mental Status: Normal Affect, Appropriate Vital Signs Temp Pulse Resp BP Pulse Ox 98.3 F 79 16 165/93 H 99 05/27/17 14:23 05/27/17 14:23 05/27/17 14:23 05/27/17 14:23 05/27/17 14:23 Oxygen Delivery Method Room Air Weight: 170 lb 12.8 oz Body Mass Index (BMI) 23.8 Intake and Output for Last 24 Hours 05/25/17 05/26/17 05/27/17 23:59 23:59 23:59 Intake Total 6280 / 6280 5786 / 5786 1268 / 1268 Balance 6280 / 6280 5786 / 5786 1268 / 1268 Microbiology Past 72 Hours 05/25/17 12:54 Gram Stain - Final Tissue - Arm Left Wound Culture - Final Staphylococcus aureus Anaerobic Culture - Preliminary Checking for anaerobes, further studies to follow. Medical Necessity - Tobacco Use Smoking Status: Never smoker Tobacco Use: Non-smoker Assessment/Plan Active and Suspected Problems Cellulitis of left upper arm (Acute) 1. Abscess dorsum left hand and wrist area on ulnar aspect. 2. Retained foreign bodies granuloma dorsal aspect left wrist and distal forearm. 3. Cocaine abuse. 4. Heroin abuse. 5. s/p I&D. Continue IV antibiotics with Vancomycin. Operative culture shows Staphylococcus aureus. Zosyn has been stopped. Should be able to be discharged on po antibiotics such as Doxycycline. Wound is stable with no bleeding. VAC in place. To be changed three times per week at 150 mmHg continuous suction. No foreign bodies seen in the area of the abscess. They appear to be more proximal and are asymptomatic at this time. Will re-evaluate in the future if the areas involved on the distal forearm become symptomatic. Anticipate increased metabolic demands from the infection and from the upcoming surgery. Prealbumin was 22.5. Encourage nutritional supplementation with protein to help the healing process. After discharge, will followup at the [facility]ound Center. If there is a plateau in the healing process, can proceed with delayed closure with skin grafting. Encourage range of motion exercises to minimize stiffness.
[2017-05-27] MEDS: cloNIDine HCl 0.1 MG Tablet PO (19:50)
[2017-05-27] MEDS: Dicyclomine 10 MG Capsule 20 MG PO (19:50)
[2017-05-27 19:54] VITALS: BP 158/84; PULSE 87; RESP 20; TEMP 37.3
[2017-05-27] MEDS: QUEtiapine 25 MG Tablet PO (23:00)
[2017-05-28 02:00] VITALS: BP 150/93; PULSE 81; RESP 18; TEMP 36.6; O2SAT 98
[2017-05-28] MEDS: Buprenorphine HCl 2 MG TAB.SUBL SL ×2 (02:27→13:39)
[2017-05-28] MEDS: cloNIDine HCl 0.1 MG Tablet PO ×2 (02:27→05:51)
[2017-05-28] MEDS: Acetaminophen 325 MG Tablet 650 MG PO ×2 (02:28→20:38)
[2017-05-28] MEDS: 0.9% NaCl Peripheral Flush Adult/Peds IV (05:50)
[2017-05-28] MEDS: tiZANidine HCl 2 MG Tablet 4 MG PO ×3 (05:51→21:59)
[2017-05-28] MEDS: Ketorolac 30 MG/ML Syringe IV ×2 (05:53→13:39)
--- NOTE | 2017-05-28 08:57 | PCM.PROGNOTE ---
Patient Problems: Active and Suspected Problems Abscess of dorsum of left hand (Acute) extending onto left wrist, ulnar aspect Abscess of bursa, left wrist (Acute) Cellulitis of left upper arm (Acute) Subjective: Chief complaint: Follow-up after admission for left upper extremity/hand cellulitis/abscess and acute opioid withdrawal for medical stabilization. Patient seen and examined. No acute events overnight. He denies any significant complaints, left hand pain is manageable. Vital signs are stable. - Physical Exam General: Alert, Oriented x3, Cooperative, No apparent distress HEENT: Atraumatic, PERRLA, EOMI Oral: Moist Mucosa, No Gingival or Mucosal Lesions/ Ulcerations Neck: Supple, No JVD, Negative Carotid Bruits, Trachea Midline, Thyroid Normal Size and Texture Lungs: Clear to auscultation, Normal air movement, No rhonchi, No wheeze, No rales Cardiovascular: Regular rate, Regular Rhythm, Normal S1, Normal S2 Abdomen: Bowel Sounds Present, Soft, Non Tender, Non-Distended, No Hepato-splenomegaly Extremities: No clubbing, No cyanosis, No edema Skin: No rashes, No breakdown Lymphatic: No Cervical, Supraclavicular, or Inguinal Adenopathy Neurological: Cranial nerves II-XII grossly intact, Neuro grossly intact Psych/Mental Status: Normal Affect, Appropriate Vital Signs Temp Pulse Resp BP Pulse Ox 98 F 81 18 150/93 H 98 05/28/17 02:00 05/28/17 02:00 05/28/17 02:00 05/28/17 02:00 05/28/17 02:00 Oxygen Delivery Method Room Air Weight: 170 lb 12.8 oz Body Mass Index (BMI) 23.8 Intake and Output for Last 24 Hours 05/26/17 05/27/17 05/28/17 23:59 23:59 23:59 Intake Total 5786 / 5786 1268 / 1268 2576 / 2576 Balance 5786 / 5786 1268 / 1268 2576 / 2576 Microbiology Past 72 Hours 05/25/17 12:54 Gram Stain - Final Tissue - Arm Left Wound Culture - Final Staphylococcus aureus Anaerobic Culture - Preliminary Checking for anaerobes, further studies to follow. Laboratory Tests Past 24 Hrs 05/27/17 16:36 Vancomycin Trough 9.0 Medical Necessity - Tobacco Use Smoking Status: Never smoker Tobacco Use: Non-smoker Assessment/Plan Active and Suspected Problems Abscess of dorsum of left hand (Acute) extending onto left wrist, ulnar aspect Abscess of bursa, left wrist (Acute) Cellulitis of left upper arm (Acute) This is a 42 years old male patient admitted because of left upper extremity/hand redness, pain and edema in context of history of IV drug abuse, found to have acute left upper extremity cellulitis with questionable foreign body and was started on [facility] protocol for medical stabilization for opioid withdrawal yesterday. #1 acute left upper extremity/hand cellulitis/abscess of the dorsum of the left hand and wrist area with retained foreign bodies granuloma: Status post incision, drainage and excisional debridement of the abscess, status post wound VAC insertion. Postoperative day 3. He is on IV vancomycin, Zosyn discontinued. Wound culture revealed MSSA. Blood cultures with no growth in 48 hours. Plastic surgery of the case, Dr. Hayes is following. #2 acute opioid withdrawal: He is on [facility] protocol with tapering course of Subutex, as needed Catapres, Bentyl, Zofran, Seroquel and Zanaflex. Patient reported some improvement of his symptoms. Vital signs are stable, blood pressure slightly elevated. Might need to start him on blood pressure medication. #3 polysubstance abuse: Hepatitis C antibodies were elevated, positive for hepatitis C. Hepatitis a antibody is also positive. At this time, he is not a candidate for treatment for hepatitis C. Recommend follow-up with PCP and referral to infectious disease as outpatient. #4 anxiety/depression: Continue Wellbutrin and atomoxetine. #5 chronic abdominal pain/chronic pancreatitis: This is chronic likely secondary to chronic pancreatitis. He is on PPI and pancrelipase. #6 DVT prophylaxis: Low risk patient, no prophylaxis indicated. This note was generated with [employer] software. It may contain incorrect words, spelling, and punctuation that were not noted in checking the note before signing. Code Visit Inpatient E&M: 86885 Subs Hosp L2
--- NOTE | 2017-05-28 09:00 | PN_ITS ---
Patient Problems: Active and Suspected Problems Abscess of dorsum of left hand (Acute) extending onto left wrist, ulnar aspect Abscess of bursa, left wrist (Acute) Cellulitis of left upper arm (Acute) Subjective: Chief complaint: Follow-up after admission for left upper extremity/hand cellulitis/abscess and acute opioid withdrawal for medical stabilization. Patient seen and examined. No acute events overnight. He denies any significant complaints, left hand pain is manageable. Vital signs are stable. - Physical Exam General: Alert, Oriented x3, Cooperative, No apparent distress HEENT: Atraumatic, PERRLA, EOMI Oral: Moist Mucosa, No Gingival or Mucosal Lesions/ Ulcerations Neck: Supple, No JVD, Negative Carotid Bruits, Trachea Midline, Thyroid Normal Size and Texture Lungs: Clear to auscultation, Normal air movement, No rhonchi, No wheeze, No rales Cardiovascular: Regular rate, Regular Rhythm, Normal S1, Normal S2 Abdomen: Bowel Sounds Present, Soft, Non Tender, Non-Distended, No Hepato- splenomegaly Extremities: No clubbing, No cyanosis, No edema Skin: No rashes, No breakdown Lymphatic: No Cervical, Supraclavicular, or Inguinal Adenopathy Neurological: Cranial nerves II-XII grossly intact, Neuro grossly intact Psych/Mental Status: Normal Affect, Appropriate Vital Signs Temp Pulse Resp BP Pulse Ox 98 F 81 18 150/93 H 98 05/28/17 02:00 05/28/17 02:00 05/28/17 02:00 05/28/17 02:00 05/28/17 02:00 Oxygen Delivery Method Room Air Weight: 170 lb 12.8 oz Body Mass Index (BMI) 23.8 Intake and Output for Last 24 Hours 05/26/17 05/27/17 05/28/17 23:59 23:59 23:59 Intake Total 5786 / 5786 1268 / 1268 2576 / 2576 Balance 5786 / 5786 1268 / 1268 2576 / 2576 Microbiology Past 72 Hours 05/25/17 12:54 Gram Stain - Final Tissue - Arm Left Wound Culture - Final Staphylococcus aureus Anaerobic Culture - Preliminary Checking for anaerobes, further studies to follow. Laboratory Tests Past 24 Hrs 05/27/17 16:36 Vancomycin Trough 9.0 Medical Necessity - Tobacco Use Smoking Status: Never smoker Tobacco Use: Non-smoker Assessment/Plan Active and Suspected Problems Abscess of dorsum of left hand (Acute) extending onto left wrist, ulnar aspect Abscess of bursa, left wrist (Acute) Cellulitis of left upper arm (Acute) This is a 42 years old male patient admitted because of left upper extremity/ hand redness, pain and edema in context of history of IV drug abuse, found to have acute left upper extremity cellulitis with questionable foreign body and was started on [facility] protocol for medical stabilization for opioid withdrawal yesterday. #1 acute left upper extremity/hand cellulitis/abscess of the dorsum of the left hand and wrist area with retained foreign bodies granuloma: Status post incision , drainage and excisional debridement of the abscess, status post wound VAC insertion. Postoperative day 3. He is on IV vancomycin, Zosyn discontinued. Wound culture revealed MSSA. Blood cultures with no growth in 48 hours. Plastic surgery of the case, Dr. Hayes is following. #2 acute opioid withdrawal: He is on [facility] protocol with tapering course of Subutex, as needed Catapres, Bentyl, Zofran, Seroquel and Zanaflex. Patient reported some improvement of his symptoms. Vital signs are stable, blood pressure slightly elevated. Might need to start him on blood pressure medication. #3 polysubstance abuse: Hepatitis C antibodies were elevated, positive for hepatitis C. Hepatitis a antibody is also positive. At this time, he is not a candidate for treatment for hepatitis C. Recommend follow-up with PCP and referral to infectious disease as outpatient. #4 anxiety/depression: Continue Wellbutrin and atomoxetine. #5 chronic abdominal pain/chronic pancreatitis: This is chronic likely secondary to chronic pancreatitis. He is on PPI and pancrelipase. #6 DVT prophylaxis: Low risk patient, no prophylaxis indicated. This note was generated with [employer] software. It may contain incorrect words, spelling, and punctuation that were not noted in checking the note before signing. Code Visit Inpatient E&M: 32222 Subs Hosp L2
[2017-05-28 09:15] VITALS: BP 120/62; PULSE 69; RESP 16; TEMP 37.2
[2017-05-28] MEDS: Pantoprazole Sodium 40 MG Tablet PO (09:30)
[2017-05-28] MEDS: Gabapentin 100 MG Capsule 200 MG PO ×3 (09:30→16:45)
[2017-05-28] MEDS: buPROPion (XL) 150 MG TABLET.XL PO ×2 (09:30→16:46)
[2017-05-28 13:33] VITALS: BP 140/95; PULSE 78; RESP 16; TEMP 37
--- NOTE | 2017-05-28 16:34 | NURSING ---
PT C/O EPIGASTRIC PAIN. PT STATES THAT PAIN OCCURS WHEN PAIN MEDS ARE DECREASED. WILL ATTEMPT TO RELIEVE PAIN WITH PRN MEDS.
[2017-05-28] MEDS: QUEtiapine 25 MG Tablet PO (16:46)
[2017-05-28] MEDS: Mag Hydrox/Al Hydrox/Simeth 30 ML UDC PO (16:46)
[2017-05-28] MEDS: Dicyclomine 10 MG Capsule 20 MG PO (16:46)
[2017-05-28 22:00] VITALS: BP 157/94; PULSE 88; RESP 15; TEMP 36.6
[2017-05-29] MEDS: Buprenorphine HCl 2 MG TAB.SUBL SL (01:59)
[2017-05-29 02:00] VITALS: BP 138/69; PULSE 77; RESP 15; TEMP 35.9
[2017-05-29 04:00] VITALS: RESP 15
[2017-05-29] MEDS: QUEtiapine 25 MG Tablet PO (04:12)
[2017-05-29] MEDS: Acetaminophen 325 MG Tablet 650 MG PO (04:12)
[2017-05-29] MEDS: Dicyclomine 10 MG Capsule 20 MG PO (04:12)
[2017-05-29 06:00] VITALS: BP 142/72; PULSE 77; RESP 15; TEMP 36.6
[2017-05-29] MEDS: tiZANidine HCl 2 MG Tablet 4 MG PO ×2 (06:52→13:29)
[2017-05-29 08:45] VITALS: BP 185/85; PULSE 86; RESP 16; TEMP 36.4
[2017-05-29] MEDS: Gabapentin 100 MG Capsule 200 MG PO ×3 (08:49→17:08)
[2017-05-29] MEDS: buPROPion (XL) 150 MG TABLET.XL PO ×2 (08:50→17:08)
[2017-05-29] MEDS: Ketorolac 30 MG/ML Syringe IV (08:57)
[2017-05-29] MEDS: Pantoprazole Sodium 40 MG Tablet PO (08:59)
[2017-05-29] MEDS: cloNIDine HCl 0.1 MG Tablet PO (09:08)
--- NOTE | 2017-05-29 10:57 | CASEMGMT ---
Addendum entered by Linda Song 05/29/17 12:37: SW called [facility], they cannot take pt as the one program he would be appropriate for, the 28 day program, does not take pt's insurance. SW also spoke w/Declan from [facility], he is going to call pt but pt cannot be on suboxone at [facility] so this will likely not be appropriate either. SW called [facility], they are just detox so is not appropriate for this pt. At this point, SW will wait to hear back from Mary at [facility]([phone]), [facility]([phone]), and [facility]([phone]). Pt's mother called, w/pt's permission, SW called her back(Michelle Guerrero, ). SW explained that we are working on finding an inpt facility, but so far have not been able to do so. SW explained pt does have an appt set up with Dr. Cee tomorrow at 3:15pm([phone]) if we cannot find an inpt facility. Pt's mother thought the place in [place]([facility]) was all set up. SW explained that this is not, that the facility has not called this SW back in regard to this, SW will try to reach them again. Pt's mother states they don't know if they can take pt back in, he may need to go to a hotel. She states they are done, pt has been through detox three times in the last six months. She explained they have spent thousands of dollars, and they just don't know that they can take pt back in again. SW offered support to pt's mother. SW explained will follow up w/[facility] again, to see if we can get anything set up for pt. SW did call [facility] again, second message left. ANDRY Camejo, RESIDENT HALL DIRECTOR Original Note: SW called [facility], message left. Nancy from [facility] and this SW spoke w/pt in room regarding options. SW explained that due to pt's hand, [facility] will not take him. SW explained has a message out to [facility] in [place] where a referral was sent, but SW has not heard back. SW and pt discussed other options. Pt states he may be able to return home and follow up w/the suboxone doctor with whom he has worked with before, put this SW on the phone w/Dr. Yuan Couch's office. DAVID set up appt for tomorrow at 3:15pm. Pt agreeable to sign a release so SW can send them clinical information. Pt is to speak w/his parents to see if he is able to return home. SW explained w/his permission can call his father, pt states he will call his parents. SW gave pt this SW's number, explained can speak w/his parents if they would like to do so. Pt asked about inpt options. SW explained can look into other options but with his hand needing dressing changes, this may not be possible. SW called [facility], message left. SW called [facility], message left. SW called [facility], spoke w/Camila to ask of other possibilities for pt. She states now that pt needs only dressing changes and not a wound vac, they may be able to take pt, and asked SW to fax over the clinical information. SW also called Janina, 8th grade teacher, to ask about dressing change supplies, she will check w/Dr. Hayes regarding dressing changes. As per Janina, pt should be able to do dressing changes himself. DAVID spoke w/pt again, he signed releases for SW to fax information to [facility], Dr. Couch, and other rehab facilities. SW explained [facility] is reconsidering, and DAVID has calls out to other facilities but SW has not heard back. Pt states if he cannot get into a facility, he will go stay in a hotel rather than go back to stay w/his parents. Pt states his friend will pick him up. SW explained to pt that regardless of the plan, he will need to go to [facility] to get dressing supplies, pt states understanding. Pt reiterated to SW that he needs to go to a program that can do suboxone, otherwise it will not work. SW explained that this is what DAVID is working on. Pt thanked DAVID for the assistance. DAVID faxed the release and medical information to [facility]. DAVID also faxed information to Dr. Yuan Cee's office. DAVID will continue to follow. ANDRY Camejo, RESIDENT HALL DIRECTOR
--- NOTE | 2017-05-29 13:17 | PCM.PROGNOTE ---
Patient Problems: Active and Suspected Problems Cellulitis of left upper arm (Acute) Subjective: Chief complaint: Follow-up after admission for left upper extremity/hand cellulitis/abscess and acute opioid withdrawal for medical stabilization. Patient seen and examined. No acute events overnight. He still complaining of epigastric pain which is not improving significantly. Denies nausea or vomiting. This pain is chronic secondary to chronic pancreatitis. Patient has been trying to get off narcotics. His vital signs are stable. - Physical Exam General: Alert, Oriented x3, Cooperative, No apparent distress HEENT: Atraumatic, PERRLA, EOMI Oral: Moist Mucosa, No Gingival or Mucosal Lesions/ Ulcerations Neck: Supple, No JVD, Negative Carotid Bruits, Trachea Midline, Thyroid Normal Size and Texture Lungs: Clear to auscultation, Normal air movement, No rhonchi, No wheeze Cardiovascular: Regular rate, Regular Rhythm, Normal S1, Normal S2, PMI Normal Abdomen: Bowel Sounds Present, Soft, Non-Distended, No Hepato-splenomegaly, Tender - Minimal epigastric tenderness. Extremities: No clubbing, No cyanosis, No edema Skin: No rashes, No breakdown Lymphatic: No Cervical, Supraclavicular, or Inguinal Adenopathy Neurological: Cranial nerves II-XII grossly intact, Neuro grossly intact Psych/Mental Status: Normal Affect, Appropriate Vital Signs Temp Pulse Resp BP Pulse Ox 97.6 F L 86 16 185/85 H 98 05/29/17 08:45 05/29/17 08:45 05/29/17 08:45 05/29/17 08:45 05/28/17 02:00 Oxygen Delivery Method Room Air Weight: 170 lb 12.8 oz Body Mass Index (BMI) 23.8 Intake and Output for Last 24 Hours 05/27/17 05/28/17 05/29/17 23:59 23:59 23:59 Intake Total 1268 / 1268 2576 / 2576 1911 Balance 1268 / 1268 2576 / 2576 1911 Microbiology Past 72 Hours 05/25/17 12:54 Gram Stain - Final Tissue - Arm Left Wound Culture - Final Staphylococcus aureus Anaerobic Culture - Final No anaerobic bacteria isolated. Medical Necessity - Tobacco Use Smoking Status: Never smoker Tobacco Use: Non-smoker Assessment/Plan Active and Suspected Problems Cellulitis of left upper arm (Acute) This is a 42 years old male patient admitted because of left upper extremity/hand redness, pain and edema in context of history of IV drug abuse, found to have acute left upper extremity cellulitis with questionable foreign body and was started on [facility] protocol for medical stabilization for opioid withdrawal yesterday. #1 acute left upper extremity/hand MSSA cellulitis/abscess of the dorsum of the left hand and wrist area with retained foreign bodies granuloma: Status post incision, drainage and excisional debridement of the abscess, status post wound VAC insertion. Postoperative day 4. IV vancomycin and Zosyn discontinued, he is on IV cefazolin. Wound culture revealed MSSA. Blood cultures with no growth in 5 days. Plastic surgery of the case, Dr. Hayes is following. #2 acute opioid withdrawal: He is on [facility] protocol with tapering course of Subutex, as needed Catapres, Bentyl, Zofran, Seroquel and Zanaflex. Patient reported some improvement of his symptoms. Vital signs are stable, blood pressure improved. Patient is done with [facility] protocol for Subutex tapering course but he continued to have abdominal pain secondary to chronic pancreatitis. We have been trying different medications without significant improvement. The bilingual social worker has been trying to get the patient go to inpatient facility for management of opioid withdrawal and left upper extremity cellulitis and abscess with surgery. Plan to keep him until tomorrow. #3 polysubstance abuse: Hepatitis C antibodies were elevated, positive for hepatitis C. Hepatitis a antibody is also positive. At this time, he is not a candidate for treatment for hepatitis C. Recommend follow-up with PCP and referral to infectious disease as outpatient. #4 anxiety/depression: Continue Wellbutrin and atomoxetine. #5 chronic abdominal pain/chronic pancreatitis: This is chronic likely secondary to chronic pancreatitis. Patient has been on PPI on pancrelipase as well as IV Toradol without significant improvement. I had a long discussion with the patient about the management of the chronic pain due to pancreatitis. I informed the patient that would be very difficult to control this chronic pain secondary to chronic pancreatitis and he might need to go on strong pain medication. Patient is preferring not to go back on narcotics. #6 DVT prophylaxis: Low risk patient, no prophylaxis indicated. This note was generated with Sc[employer]per[employer]ik[employer] software. It may contain incorrect words, spelling, and punctuation that were not noted in checking the note before signing. Code Visit Inpatient E&M: 65840 Subs Hosp L2
--- NOTE | 2017-05-29 13:22 | PN_ITS ---
Patient Problems: Active and Suspected Problems Cellulitis of left upper arm (Acute) Subjective: Chief complaint: Follow-up after admission for left upper extremity/hand cellulitis/abscess and acute opioid withdrawal for medical stabilization. Patient seen and examined. No acute events overnight. He still complaining of epigastric pain which is not improving significantly. Denies nausea or vomiting. This pain is chronic secondary to chronic pancreatitis. Patient has been trying to get off narcotics. His vital signs are stable. - Physical Exam General: Alert, Oriented x3, Cooperative, No apparent distress HEENT: Atraumatic, PERRLA, EOMI Oral: Moist Mucosa, No Gingival or Mucosal Lesions/ Ulcerations Neck: Supple, No JVD, Negative Carotid Bruits, Trachea Midline, Thyroid Normal Size and Texture Lungs: Clear to auscultation, Normal air movement, No rhonchi, No wheeze Cardiovascular: Regular rate, Regular Rhythm, Normal S1, Normal S2, PMI Normal Abdomen: Bowel Sounds Present, Soft, Non-Distended, No Hepato-splenomegaly, Tender - Minimal epigastric tenderness. Extremities: No clubbing, No cyanosis, No edema Skin: No rashes, No breakdown Lymphatic: No Cervical, Supraclavicular, or Inguinal Adenopathy Neurological: Cranial nerves II-XII grossly intact, Neuro grossly intact Psych/Mental Status: Normal Affect, Appropriate Vital Signs Temp Pulse Resp BP Pulse Ox 97.6 F L 86 16 185/85 H 98 05/29/17 08:45 05/29/17 08:45 05/29/17 08:45 05/29/17 08:45 05/28/17 02:00 Oxygen Delivery Method Room Air Weight: 170 lb 12.8 oz Body Mass Index (BMI) 23.8 Intake and Output for Last 24 Hours 05/27/17 05/28/17 05/29/17 23:59 23:59 23:59 Intake Total 1268 / 1268 2576 / 2576 1911 Balance 1268 / 1268 2576 / 2576 1911 Microbiology Past 72 Hours 05/25/17 12:54 Gram Stain - Final Tissue - Arm Left Wound Culture - Final Staphylococcus aureus Anaerobic Culture - Final No anaerobic bacteria isolated. Medical Necessity - Tobacco Use Smoking Status: Never smoker Tobacco Use: Non-smoker Assessment/Plan Active and Suspected Problems Cellulitis of left upper arm (Acute) This is a 42 years old male patient admitted because of left upper extremity/ hand redness, pain and edema in context of history of IV drug abuse, found to have acute left upper extremity cellulitis with questionable foreign body and was started on [facility] protocol for medical stabilization for opioid withdrawal yesterday. #1 acute left upper extremity/hand MSSA cellulitis/abscess of the dorsum of the left hand and wrist area with retained foreign bodies granuloma: Status post incision, drainage and excisional debridement of the abscess, status post wound VAC insertion. Postoperative day 4. IV vancomycin and Zosyn discontinued, he is on IV cefazolin. Wound culture revealed MSSA. Blood cultures with no growth in 5 days. Plastic surgery of the case, Dr. Hayes is following. #2 acute opioid withdrawal: He is on [facility] protocol with tapering course of Subutex, as needed Catapres, Bentyl, Zofran, Seroquel and Zanaflex. Patient reported some improvement of his symptoms. Vital signs are stable, blood pressure improved. Patient is done with [facility] protocol for Subutex tapering course but he continued to have abdominal pain secondary to chronic pancreatitis. We have been trying different medications without significant improvement. The social security benefits interviewer has been trying to get the patient go to inpatient facility for management of opioid withdrawal and left upper extremity cellulitis and abscess with surgery. Plan to keep him until tomorrow. #3 polysubstance abuse: Hepatitis C antibodies were elevated, positive for hepatitis C. Hepatitis a antibody is also positive. At this time, he is not a candidate for treatment for hepatitis C. Recommend follow-up with PCP and referral to infectious disease as outpatient. #4 anxiety/depression: Continue Wellbutrin and atomoxetine. #5 chronic abdominal pain/chronic pancreatitis: This is chronic likely secondary to chronic pancreatitis. Patient has been on PPI on pancrelipase as well as IV Toradol without significant improvement. I had a long discussion with the patient about the management of the chronic pain due to pancreatitis. I informed the patient that would be very difficult to control this chronic pain secondary to chronic pancreatitis and he might need to go on strong pain medication. Patient is preferring not to go back on narcotics. #6 DVT prophylaxis: Low risk patient, no prophylaxis indicated. This note was generated with JumpCloud[employer] software. It may contain incorrect words, spelling, and punctuation that were not noted in checking the note before signing. Code Visit Inpatient E&M: 02882 Subs Hosp L2
[2017-05-29] MEDS: Cefazolin 2 GM in 0.9% Normal Saline 100 ML IV (13:28)
[2017-05-29] MEDS: Ketorolac 15 MG/ML Vial IV (13:35)
[2017-05-29 13:37] VITALS: BP 171/87; PULSE 88; RESP 18; TEMP 36.8
--- NOTE | 2017-05-29 14:40 | PCM.PN.BLA ---
Progress Note Was called to patient's bedside because of some oozing from the wound during the dressing change. There was some bleeding at the ulnar edge of the wound that responded to bimanual pressure and silver nitrate chemical cauterization. The Aquacel Silver dressing change was then completed. Ok from my standpoint for discharge. Wrote script for Aquacel Silver and Gauze bandage rolls so the patient can do his own Silver dressing changes every other day. Wrote script for Doxycycline for the Staphylococcus aureus for 14 days (28 tabs) and 2 refills. Will reassess at the Wound Center to determine if additional antibiotics are needed. Wrote script for Percocet for pain, one tab (20 tabs). With his history, he gets one script for pain postop. When I see him at the Wound Center, he will be advised to take ibuprofen or tylenol for the pain. Followup at Wound Center in 2 weeks. Call [phone] for appt. Encourage the patient to proceed with range of motion exercises to minimize stiffness. If stiffness persists when I see him at the Wound Center, will make arrangements to be seen at OT for range of motion exercises, strengthening, and edema management.
--- NOTE | 2017-05-29 14:45 | PN_ITS ---
Progress Note Was called to patient's bedside because of some oozing from the wound during the dressing change. There was some bleeding at the ulnar edge of the wound that responded to bimanual pressure and silver nitrate chemical cauterization. The Aquacel Silver dressing change was then completed. Ok from my standpoint for discharge. Wrote script for Aquacel Silver and Gauze bandage rolls so the patient can do his own Silver dressing changes every other day. Wrote script for Doxycycline for the Staphylococcus aureus for 14 days (28 tabs ) and 2 refills. Will reassess at the Wound Center to determine if additional antibiotics are needed. Wrote script for Percocet for pain, one tab (20 tabs). With his history, he gets one script for pain postop. When I see him at the Wound Center, he will be advised to take ibuprofen or tylenol for the pain. Followup at Wound Center in 2 weeks. Call [phone] for appt. Encourage the patient to proceed with range of motion exercises to minimize stiffness. If stiffness persists when I see him at the Wound Center, will make arrangements to be seen at OT for range of motion exercises, strengthening, and edema management.
--- NOTE | 2017-05-29 16:35 | PCM.PN.BLA ---
Progress Note Patient had some more oozing through the previous dressing. I was able to obtain hemostasis with finger pressure, and silver nitrate chemical cauterization. Afterwards, I waited about 10 minutes with no dressing applied and no more bleeding was seen. I then dressed the wound with Aquacel Silver followed by 4x4 compression gauze followed by Kerlix compression gauze and a compression john wrap. I initially wrote a script for Percocet for discharge (20 tabs) until he is seen by his MD to get back on Suboxone. However, I was alerted to the fact he is a [facility] patient, and they would prefer that the patient not get any Percocet at discharge. So the order was cancelled and the script was shredded.
--- NOTE | 2017-05-29 16:49 | NURSING ---
Pt on and off through out the day threatening to leave ama. Had been on the phone argueing with someone. When pt got off of the phone he through his phone across his room. Stated call the doctor and get me something for anxiety, and dont give me Seroquel or clonidine because that doesn't work. Pt then states he was talking about Ativan or benzos, advised pt that i was pretty sure MD would not order benzos d/t them being addictive and pts drug abuse hx, but i would see if their was anything else the doctor would like to order. Pt also complaining of abd pain, stating toradol does not help and that he wants percocet or vicodin. Spoke to MD about pts request and threatening to leave AMA, MD stated he would not order any narcotics for the pt, and that pt needed to be reminded that he just went through [facility] withdrawl taper. stated he would also like pt to stay till humberto d/t hand keeps bleeding and DR mendes had to come over to use silver nitrate to get bleeding to stop.
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
--- NOTE | 2017-06-05 09:53 | CASEMGMT ---
SW received a message from Susan at [facility] on Monday, inquiring about pt. SW called Susan back today([phone], [phone]), letting her know pt left last Monday and to call pt directly as he is likely most interested in inpt services. No further social service needs at this time. ANDRY Camejo, LICENSED PROFESSIONAL COUNSELOR
== END 2017-05-29 17:45 | disposition left against medical advice (07) | DRG 468 ==
LOC: ED 13:05 → MS2 13:50
PROVIDERS: Hospitalist; Surgery; Admitting Provider Family Medicine; Emergency Provider Emergency Medicine; Visit Provider Hospitalist
PROC: 0LB80ZZ Excision of Left Hand Tendon, Open Approach (ICD-10-PCS; principal; 2017-05-25 10:45)
DX: L03.114 Cellulitis of left upper limb (principal); K86.1 Other chronic pancreatitis; F11.23 Opioid dependence with withdrawal; F14.10 Cocaine abuse, uncomplicated; B95.61 Methicillin susceptible Staphylococcus aureus infection as the cause of diseases classified elsewhere; F41.9 Anxiety disorder, unspecified; F32.9 Major depressive disorder, single episode, unspecified
CPT/HCPCS: 36415; 73110; 73200; 80048; 80202; 81001; 83735; 84100; 84134; 85025; 85027; 86704; 86705; 86706; 86708; 86709; 86803; 87040; 87070; 87075; 87077; 87102; 87186; 87205; 87206; 87340; 88304; 93005; 97802; 99285; 99406; J7030; J7040; J7050; A4216; J0295; J2405